=== PATIENT | female | born 1995 | race Caucasian/White ===

== ENCOUNTER 2019-01-29 11:58 | Observation (INO) | payer MEDICAID, OTHER ==
[~2019-01-29] VITALS: Ht 170.2 cm; Wt 74.9 kg
[2019-01-29] VITALS (8 sets, daily range): BP systolic 102–122; BP diastolic 58–70
--- OUTSIDE RECORDS SUMMARY | 2019-01-29 12:02 | XMS REPORT | Continuity of Care Document ---
Author Organization Unknown Address Unknown Allergies Active Description Code Type Severity Reaction Onset Reported/Identified Relationship to Patient Clinical Status Yes Omnicef Drug N/A N/A Yes penicillins Drug N/A N/A Medications There is no data. Problems Date Dx Coded Attending Type Code Diagnosis Diagnosed By 01/03/2015 Shakeel Adam Final 521.00 Dental Caries, Unspecified 01/03/2015 Shakeel Adam Final 787.01 Nausea with Vomiting Procedures There is no data. Results There is no data. Encounters ACCT No. Visit Date/Time Discharge Status Pt. Type Provider Facility Loc./Unit Complaint [id number] 01/03/2015 20:58:00 01/03/2015 23:50:00 DIS Emergency Shakeel Adam [facility] ER Nausea [facility] 01/03/2015 20:58:43 ACT Document Registration
--- NOTE | 2019-01-29 12:22 | ED Psychosocial ---
General Chief Complaint: Substance Abuse Source: family, EMS Exam Limitations: clinical condition, intoxication History of Present Illness Date Seen by Provider: Jan 29, 2019 Time Seen by Provider: 12:10 Initial Comments 23-year-old female brought in by EMS. EMS was called by patient's family due to her acting abnormal. Family reports that she got home around 8:30 this morning. She was acting altered and then had a syncope event. When EMS arrived patient was unresponsive. She became unresponsive shortly after they loaded her into the ambulance. They do report a very brief seizure-like activity. Patient reports that she used meth last night. She denies any other drug use. Patient does not provide a lot of further information. Allergies and Home Medications Allergies Uncoded Allergies: PENICILLIN (Allergy, Unknown, 01/29/19) SHELL FISH (Allergy, Unknown, 01/29/19) Patient Home Medication List Home Medication List Reviewed: Yes Review of Systems Constitutional: see HPI Respiratory: see HPI Musculoskeletal: no symptoms reported Skin: no symptoms reported Psychiatric/Neurological: Other (History of PTSD per her, possible history of seizures per her) Past Luacmtt-Mjbtrp-Bxrflc Hx Past Med/Social Hx: Reviewed Nursing Past Med/Soc Hx Physical Exam Vital Signs - First Documented 01/29/19 12:00 Temp 98.3 Pulse 117 Resp 18 B/P (MAP) 131/68 (89) Pulse Ox 98 O2 Delivery Room Air Capillary Refill : Height, Weight, BMI Height: '" Weight: lbs. oz. kg; BMI Method: General Appearance: other (Obviously intoxicated/altered due to substance abuse) HEENT: PERRL/EOMI Neck: full range of motion, supple Respiratory: chest non-tender, lungs clear Cardiovascular: normal peripheral pulses, regular rate, rhythm Gastrointestinal: non tender, soft Neurologic/Psychiatric: privacy compliance manager II-XII nml as tested, no motor/sensory deficits, other (Patient has episodes of shaking with decreased responsivebut comes out of it with stimulation) Appearance/Memory: other (Disheveled) Behavior/Eye Contact: increased rate of speech Thoughts/Hallucinations: No normal thought pattern Progress/Results/Core Measures Results/Orders Lab Results Laboratory Tests Test 01/29/19 12:10 01/29/19 12:38 01/29/19 13:37 Range/Units White Blood Count 15.5 H 4.3-11.0 10^3/uL Red Blood Count 4.05 L 4.35-5.85 10^6/uL Hemoglobin 9.8 L 11.5-16.0 G/DL Hematocrit 31 L 35-52 % Mean Corpuscular Volume 75 L 80-99 FL Mean Corpuscular Hemoglobin 24 L 25-34 PG Mean Corpuscular Hemoglobin Concent 32 32-36 G/DL Red Cell Distribution Width 18.6 H 10.0-14.5 % Platelet Count 391 130-400 10^3/uL Mean Platelet Volume 9.6 7.4-10.4 FL Neutrophils (%) (Auto) 76 H 42-75 % Lymphocytes (%) (Auto) 14 12-44 % Monocytes (%) (Auto) 9 0-12 % Eosinophils (%) (Auto) 0 0-10 % Basophils (%) (Auto) 0 0-10 % Neutrophils # (Auto) 11.7 H 1.8-7.8 X 10^3 Lymphocytes # (Auto) 2.2 1.0-4.0 X 10^3 Monocytes # (Auto) 1.4 H 0.0-1.0 X 10^3 Eosinophils # (Auto) 0.0 0.0-0.3 10^3/uL Basophils # (Auto) 0.0 0.0-0.1 10^3/uL Neutrophils % (Manual) 81 % Lymphocytes % (Manual) 12 % Monocytes % (Manual) 5 % Eosinophils % (Manual) 0 % Basophils % (Manual) 0 % Band Neutrophils 2 % Sodium Level 141 135-145 MMOL/L Potassium Level 3.4 L 3.6-5.0 MMOL/L Chloride Level 104 98-107 MMOL/L Carbon Dioxide Level 21 21-32 MMOL/L Anion Gap 16 H 5-14 MMOL/L Blood Urea Nitrogen 12 7-18 MG/DL Creatinine 0.60 0.60-1.30 MG/DL Estimat Glomerular Filtration Rate > 60 BUN/Creatinine Ratio 20 Glucose Level 97 70-105 MG/DL Calcium Level 8.1 L 8.5-10.1 MG/DL Corrected Calcium 8.3 L 8.5-10.1 MG/DL Total Bilirubin 0.5 0.1-1.0 MG/DL Aspartate Amino Transf (AST/SGOT) 53 H 5-34 U/L Alanine Aminotransferase (ALT/SGPT) 48 0-55 U/L Alkaline Phosphatase 64 40-136 U/L Total Protein 6.7 6.4-8.2 GM/DL Albumin 3.7 3.2-4.5 GM/DL Serum Alcohol < 10 <10 MG/DL Serum Test, Qualitative POSITIVE NEGATIVE Urine Color YELLOW Urine Clarity CLEAR Urine pH 5.5 5-9 Urine Specific [place] >=1.030 1.016-1.022 Urine Protein 1+ H NEGATIVE Urine Glucose (UA) NEGATIVE NEGATIVE Urine Ketones 1+ H NEGATIVE Urine Nitrite NEGATIVE NEGATIVE Urine Bilirubin NEGATIVE NEGATIVE Urine Urobilinogen 0.2 NORMAL MG/DL Urine Leukocyte Esterase NEGATIVE NEGATIVE Urine RBC (Auto) NEGATIVE NEGATIVE Urine RBC NONE /HPF Urine WBC RARE /HPF Urine Squamous Epithelial Cells RARE /HPF Urine Crystals PRESENT H /LPF Urine Amorphous Sediment MOD LENA URATES H /LPF Urine Bacteria NEGATIVE /HPF Urine Casts NONE /LPF Urine Mucus MODERATE H /LPF Urine Culture Indicated NO Urine Opiates Screen NEGATIVE NEGATIVE Urine Oxycodone Screen NEGATIVE NEGATIVE Urine Methadone Screen NEGATIVE NEGATIVE Urine Propoxyphene Screen NEGATIVE NEGATIVE Urine Barbiturates Screen NEGATIVE NEGATIVE Ur Tricyclic Antidepressants Screen NEGATIVE NEGATIVE Urine Phencyclidine Screen NEGATIVE NEGATIVE Urine Amphetamines Screen POSITIVE H NEGATIVE Urine Methamphetamines Screen POSITIVE H NEGATIVE Urine Benzodiazepines Screen POSITIVE H NEGATIVE Urine Cocaine Screen NEGATIVE NEGATIVE Urine Cannabinoids Screen POSITIVE H NEGATIVE My Orders Orders - POLLOCK,ALIDA L DO Alcohol (01/29/19 12:04) Cbc With Automated Diff (01/29/19 12:04) Comprehensive Metabolic Panel (01/29/19 12:04) Drug Screen Stat (Urine) (01/29/19 12:04) Hcg,Qualitative Serum (01/29/19 12:04) Ua Culture If Indicated (01/29/19 12:04) Ct Head Wo (01/29/19 12:04) Lorazepam Injection (Ativan Injection) (01/29/19 12:30) Manual Differential (01/29/19 12:10) Ns Iv 1000 Ml (Sodium Chloride 0.9%) (01/29/19 12:55) Medications Given in ED Current Medications Medications Dose Ordered Sig/Robles Route Start Time Stop Time Status Last Admin Dose Admin Lorazepam 2 mg ONCE ONCE IVP 01/29/19 12:30 01/29/19 12:31 DC 01/29/19 12:30 2 MG Vital Signs/I&O 6/29/19 12:00 Temp 98.3 Pulse 117 Resp 18 B/P (MAP) 131/68 (89) Pulse Ox 98 O2 Delivery Room Air Departure Communication (Admissions) Time/Spoke to Admitting Phy: 14:[address] Cortez. She will be transferred to [place] [facility] for observation due to her syncope and seizure like activity. Impression Primary Impression: Drug abuse Additional Impressions: Unresponsive episode Observed seizure-like activity Disposition: 02 XFER SHT-TRM HOSP Condition: Stable Admissions Decision to Admit Reason: Admit from ER (Trauma) Decision to Admit/Date: Jan 29, 2019 Time/Decision to Admit Time: 14:27 Transfer Transfer Facility: [facility] Method of Transfer: EMS Departure-Patient Inst. Patient Instructions: ALCOHOL AND SUBSTANCE ABUSE ALIDA POLLOCK DO Jan 29, 2019 12:22
[2019-01-29 12:23] LABS: HEMATOCRIT 31 % (35-52); HEMOGLOBIN 9.8 G/DL (11.5-16.0); LYMPHOCYTES % (AUTO) 14 % (12-44); MEAN CORPUSCULAR HEMOGLOBIN 24 PG (25-34); MEAN CORPUSCULAR HGB CONC 32 G/DL (32-36); MEAN CORPUSCULAR VOLUME 75 FL (80-99); MEAN PLATELET VOLUME 9.6 FL (7.4-10.4); NEUTROPHILS % (AUTO) 76 % (42-75); PLATELET COUNT 391 10^3/uL (130-400); RED CELL DISTRIBUTION WIDTH 18.6 % (10.0-14.5); WHITE BLOOD COUNT 15.5 10^3/uL (4.3-11.0)
[2019-01-29 12:24] LABS: BASOPHILS % (AUTO) 0 % (0-10); EOSINOPHILS % (AUTO) 0 % (0-10); LYMPHOCYTES # (AUTO) 2.2 X 10^3 (1.0-4.0); MONOCYTES # (AUTO) 1.4 X 10^3 (0.0-1.0); MONOCYTES % (AUTO) 9 % (0-12); NEUTROPHILS # (AUTO) 11.7 X 10^3 (1.8-7.8)
[2019-01-29] MEDS ORDERED: LORazepam INJ 2 MG/ML (ATIVAN) VIAL IVP ONE (12:30)
[2019-01-29 12:42] LABS: BAND NEUTROPHILS 2 %; BASOPHILS % (MANUAL) 0 %; EOSINOPHILS % (MANUAL) 0 %; LYMPHOCYTES % (MANUAL) 12 %; MONOCYTES % (MANUAL) 5 %; NEUTROPHILS % (MANUAL) 81 %
[2019-01-29 12:44] LABS: ALANINE AMINOTRANSFERASE 48 U/L (0-55); ALBUMIN 3.7 GM/DL (3.2-4.5); ALKALINE PHOSPHATASE 64 U/L (40-136); BILIRUBIN,TOTAL 0.5 MG/DL (0.1-1.0); BUN/CREATININE RATIO 20; CALCIUM 8.1 MG/DL (8.5-10.1); CARBON DIOXIDE 21 MMOL/L (21-32); CHLORIDE 104 MMOL/L (98-107); GFR ESTIMATED > 60; GLUCOSE 97 MG/DL (70-105); POTASSIUM 3.4 MMOL/L (3.6-5.0); SODIUM 141 MMOL/L (135-145); TOTAL PROTEIN 6.7 GM/DL (6.4-8.2)
--- NOTE | 2019-01-29 12:45 | Diagnostic Imaging Report ---
PROCEDURE: CT head without contrast. TECHNIQUE: Multiple contiguous axial images were obtained through the brain without the use of intravenous contrast. Auto Exposure Controls were utilized during the CT exam to meet ALARA standards for radiation dose reduction. INDICATION: Confusion, mental status changes COMPARISON: None. FINDINGS: Ventricles normal in size, shape and position. There is no midline shift or mass effect. There is no hemorrhage or evidence of acute ischemia. No extra-axial fluid collection is identified. The bony calvarium and mastoids are clear. There are air-fluid levels in the maxillary sinuses. IMPRESSION: 1. No acute intracranial abnormalities. 2. Maxillary sinus disease likely acute. Dictated by: Dictated on workstation # [id number]
[2019-01-29] MEDS ORDERED: NS IV 1000 ML 1,000 ML IV SCH ×2 (12:55→14:37)
[2019-01-29 13:53] LABS: BACTERIA,URINE NEGATIVE /HPF; BILIRUBIN,URINE NEGATIVE (NEGATIVE); CLARITY,URINE CLEAR; COLOR,URINE YELLOW; GLUCOSE, URINE (UA) NEGATIVE (NEGATIVE); KETONES,URINE 1+ (NEGATIVE); LEUKOCYTE ESTERASE ,URINE NEGATIVE (NEGATIVE); NITRITE,URINE NEGATIVE (NEGATIVE); PH,URINE 5.5 (5-9); PROTEIN,URINE 1+ (NEGATIVE); SQUAMOUS EPITHELIAL CELL,UR RARE /HPF; UROBILINOGEN,URINE 0.2 MG/DL (NORMAL); WBC,URINE RARE /HPF
[2019-01-29 13:54] LABS: AMORPHOUS SEDIMENT,UR MOD AMOR URATES /LPF
[2019-01-29 13:56] LABS: CANNABINOID SCREEN, URINE POSITIVE (NEGATIVE)
[2019-01-29 13:57] LABS: AMPHETAMINE SCREEN, URINE POSITIVE (NEGATIVE); BARBITURATE SCREEN URINE NEGATIVE (NEGATIVE); BENZODIAZEPINES SCREEN URINE POSITIVE (NEGATIVE); COCAINE SCREEN URINE NEGATIVE (NEGATIVE); METHADONE STAT NEGATIVE (NEGATIVE); METHAMPHETAMINE SCREEN URINE S POSITIVE (NEGATIVE); OPIATE SCREEN URINE NEGATIVE (NEGATIVE); OXYCODONE STAT NEGATIVE (NEGATIVE); PROPOXYPHENE STAT NEGATIVE (NEGATIVE); TRICYCLIC ANTIDEPRESSANTS SCRE NEGATIVE (NEGATIVE)
--- OUTSIDE RECORDS SUMMARY | 2019-01-29 14:44 | XMS REPORT | Continuity of Care Document ---
[...] Status Pt. Type Provider Facility Loc./Unit Complaint [id number] 01/03/2015 20:58:00 01/03/2015 23:50:00 DIS Emergency Shakeel Adam [facility] ER Nausea [id number] 01/03/2015 20:58:43 ACT Document Registration
[2019-01-29] MEDS: NS IV 1000 ML 1,000 ML IV SCH (16:51)
[2019-01-30] VITALS (12 sets, daily range): BP systolic 103–124; BP diastolic 62–75
[2019-01-30] MEDS: NS IV 1000 ML 1,000 ML IV SCH ×4 (02:00→21:31)
[2019-01-30 03:35] LABS: BASOPHILS % (AUTO) 0 % (0-10); EOSINOPHILS # (AUTO) 0.1 10^3/uL (0.0-0.3); EOSINOPHILS % (AUTO) 1 % (0-10); HEMATOCRIT 29 % (35-52); HEMOGLOBIN 9.3 G/DL (11.5-16.0); LYMPHOCYTES % (AUTO) 28 % (12-44); MEAN CORPUSCULAR HEMOGLOBIN 24 PG (25-34); MEAN CORPUSCULAR HGB CONC 32 G/DL (32-36); MEAN CORPUSCULAR VOLUME 75 FL (80-99); MEAN PLATELET VOLUME 9.7 FL (7.4-10.4); MONOCYTES # (AUTO) 1.1 X 10^3 (0.0-1.0); MONOCYTES % (AUTO) 10 % (0-12); NEUTROPHILS # (AUTO) 6.5 X 10^3 (1.8-7.8); NEUTROPHILS % (AUTO) 61 % (42-75); PLATELET COUNT 352 10^3/uL (130-400); WHITE BLOOD COUNT 10.7 10^3/uL (4.3-11.0)
[2019-01-30 03:55] LABS: ALANINE AMINOTRANSFERASE 54 U/L (0-55); ALBUMIN 3.3 GM/DL (3.2-4.5); ALKALINE PHOSPHATASE 57 U/L (40-136); BILIRUBIN,TOTAL 0.6 MG/DL (0.1-1.0); BUN/CREATININE RATIO 9; CALCIUM 7.6 MG/DL (8.5-10.1); CARBON DIOXIDE 19 MMOL/L (21-32); CHLORIDE 111 MMOL/L (98-107); CREATININE SERUM 0.53 MG/DL (0.60-1.30); GFR ESTIMATED > 60; GLUCOSE 76 MG/DL (70-105); POTASSIUM 2.8 MMOL/L (3.6-5.0); SODIUM 139 MMOL/L (135-145); TOTAL PROTEIN 5.7 GM/DL (6.4-8.2)
--- NOTE | 2019-01-30 07:05 | NUR ---
INFORMED DR. ZARATE OF PATIENT'S POTASSIUM OF 2.8. RECEIVED ORDERS FOR 10 MEQ POTASSIUM PO NOW AND REPEAT IN TWO HOURS.
[2019-01-30] MEDS ORDERED: KCL 10 MEQ TAB (MICRO K) PO ONE ×2 (07:15→09:15)
--- NOTE | 2019-01-30 11:42 | Short Stay Summary-Hospitalist ---
History of Present Illness HPI/Chief Complaint 23-year-old female brought in by EMS. EMS was called by patient's family due to her acting abnormal. Family reports that she got home around 8:30 this morning. She was acting altered and then had a syncope event. When EMS arrived patient was unresponsive. She became unresponsive shortly after they loaded her into the ambulance. They do report a very brief seizure-like activity. Patient reports that she used meth last night. She denies any other drug use. Patient does not provide a lot of further information. upon my arrival this morning the patient was alert and oriented. She did not recall much of anything about yesterday's events. She stated that she had been abstinent from meth for 6 months but admitted that she had messed up and had started using the night before. She has had problems of agitation with the medication in the past but does not note any past history for seizure disorder and denied any trauma issues. She had no evidence for head or neck trauma reported no problems with headaches or neck pain and had a negative CT scan in the emergency room. We discussed the fact that her test is positive and she is unsure as to when her last menstrual period was. She states that she is interested in drug treatment now. As it is Thursday we are in the process of getting her set up with mental health services to discuss likely outpatient or whether or not she would be a candidate for any inpatient programs for drug rehabilitation. She states that she is motivated to following through with this. She will be discharged later today after appropriate follow-up can be made with mental health services. Discussed that she would need to follow-up with a electroplating sales representative and since she is new to the area could look into community health as she is uninsured. Date Seen 01/30/19 Time Seen by a Provider: 07:30 Attending Physician Masoud Zarate MD PCP No,Local Physician Referring Physician Date of Admission Jan 29, 2019 at 14:39 Home Medications & Allergies Home Medications Reviewed patient Home Medication Reconciliation performed by pharmacy medication reconciliations thermoplastic technician and/or nursing. Patients Allergies have been reviewed. Allergies Allergies Uncoded Allergies PENICILLIN ( Allergy, Unknown, 01/29/19) SHELL FISH ( Allergy, Unknown, 01/29/19) Past Mravyzt-Egpthp-Yuexpq Hx Past Med/Social Hx: Reviewed Nursing Past Med/Soc Hx, Reviewed and Corrections made Patient Social History Alcohol Use: Rarely Uses Recreational Drug Use: Yes Drug of Choice: Methamphetamines, Marijuana Smoking Status: Current Everyday Smoker Type Used: Cigarettes 2nd Hand Smoke Exposure: No Recent Foreign Travel: No Contact w/other who traveled: No Recent Hopitalizations: No Recent Infectious Disease Expo: No Seasonal Allergies Seasonal Allergies: No Past Medical History : Yes Psychosocial: PTSD History of Blood Disorders: No Review of Systems Constitutional: no symptoms reported Respiratory: no symptoms reported Cardiovascular: no symptoms reported Physical Exam Physical Exam Vital Signs Vital Signs - First Documented 01/29/19 12:00 Temp 98.3 Pulse 117 Resp 18 B/P (MAP) 131/68 (89) Pulse Ox 98 O2 Delivery Room Air Capillary Refill : Less Than 3 Seconds Height, Weight, BMI Height: 5'7.00" Weight: 165lbs. 3.0oz. 74.398501yg; 25.4 BMI Method:Actual General Appearance: No Apparent Distress, WD/WN HEENT: PERRL/EOMI Neck: Full Range of Motion, Normal Inspection, Non Tender Respiratory: Chest Non Tender, Lungs Clear, Normal Breath Sounds, No Accessory Muscle Use, No Respiratory Distress Cardiovascular: Regular Rate, Rhythm, No Edema, No Gallop, No JVD, No Murmur, Normal Peripheral Pulses Gastrointestinal: Normal Bowel Sounds, No Organomegaly, No Pulsatile Mass, Non Tender, Soft Extremity: Normal Capillary Refill, Normal Inspection, Normal Range of Motion, Non Tender, No Calf Tenderness, No Pedal Edema Neurologic/Psychiatric: Alert, Oriented x3, No Motor/Sensory Deficits, Normal Mood/Affect Skin: Normal Color, Warm/Dry Results Results/Procedures Labs Laboratory Tests 01/29/19 12:10 01/30/19 03:15 Patient resulted labs reviewed. Short Stay Diagnosis Discharge Diagnosis-Short Stay Admission Diagnosis A/P 1. 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 Patient advised that she should not be driving for 6 months however. 2. Positive test. Final Discharge Diagnosis as per admission diagnosis Conclusion Plan see history of present illness Clinical Quality Measures DVT/VTE Risk/Contraindication: Risk Factor Score Per Nursin RFS Level Per Nursing on Admit: 2=Moderate MASOUD ZARATE MD Jan 30, 2019 11:41
--- NOTE | 2019-01-30 19:55 | NUR ---
PT REQUESTING TO CALL HER MOM AT THIS TIME. THIS RN SHOWED PATIENT HOW TO USE PHONE. MOMENTS LATER SCREAMING HEARD FROM PATIENT'S ROOM. PT ON THE PHONE SCREAMING "I DID NOT TOUCH HER, IT'S NOT BATTERY IF YOU DON'T TOUCH THEM." THIS RN ASKED PT TO PLEASE KEEP HER VOICE DOWN. THIS RN CLOSED PT DOOR AND SAT OUTSIDE OF ROOM TO INSURE PT WOULD BE SAFE. PT BEGAN TO SCREAM AGAIN, "I'VE BEEN CLEAN 150 DAYS NOW MOM, I CAN'T DO METH ANYMORE BECAUSE I'M GOING TO HAVE A BABY." CONVERSATION ENDED AND PT APPEARS MORE RELAXED. BED ALARM IS ON. BED IS IN LOWEST POSITION AND TELESITTER IN PLACE.
[2019-01-31 01:06] VITALS: BP 124/66
[2019-01-31] MEDS: NS IV 1000 ML 1,000 ML IV SCH ×3 (02:35→14:09)
[2019-01-31 04:23] VITALS: BP 126/58
[2019-01-31 08:00] VITALS: BP 122/67
[2019-01-31] MEDS ORDERED: MV-M1TAB66 PO (08:03)
--- NOTE | 2019-01-31 10:28 | NUR ---
CM/SS spoke with the [facility], they did not physically assess the patient as she was not suicidal or homicidal. Patient was stating willing to go to inpatient treatment if she was able to and information was sent to [facility] on 01/30. [facility] declined placement. Patient reports she has been in inpatient psych placements previously with [facility]. With last inpatient psych placement 6-7months ago. Patient has been staying with her wnsqli-qt-iob (Ike) in [place] until recently when went to see her mom in [facility]. Patient had A/D and MH counseling services set up until November 2018. Patient is now wanting to just go back to stay with her inqxpe-hm-kwg, where she will have to re-establish her counseling as a stipulation for her to stay there. Spoke with Adriana and she stated that she would transport the patient this day and that she would be allowed to stay there if she was seeking counseling, she hopes that knowing she is now will be added motivation for her to straighten out her life. Patient stated that she was beginning to "get down on herself" and that is why she was agreeing to go inpatient. She stated that she was not having any suicidal ideations at this time and has no plan.
[2019-01-31 12:00] VITALS: BP 110/87
--- NOTE | 2019-01-31 12:13 | Discharge Inst-Simple/Standard ---
Discharge Inst-Standard Patient Instructions/Follow Up Plan of Care/Instructions/FU: Please continue to take your vitamin. Please follow up with your PCP at to follow up on . Please quit using drugs. Please do not drivve for 6 months. Activity as Tolerated: Yes Discharge Diet: No Restrictions Return to The Hospital For: Chest pain, Shortness of breath, seizures, vaginal bleeding, abdominal pain, if you feel you are getting worse. LISA GRANT MD Jan 31, 2019 12:13
--- NOTE | 2019-01-31 12:15 | Discharge Summary-Hospitalist ---
Diagnosis/Chief Complaint Date of Admission Jan 29, 2019 at 14:39 Date of Discharge Discharge Date: Jan 31, 2019 Admission Diagnosis A/P 1. 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 Patient advised that she should not be driving for 6 months however. 2. Positive test. Discharge Summary Discharge Physical Exam Allergies: Uncoded Allergies: PENICILLIN (Allergy, Unknown, 01/29/19) SHELL FISH (Allergy, Unknown, 01/29/19) Vitals & I&Os Vital Signs Date Time Temp Pulse Resp B/P (MAP) Pulse Ox O2 Delivery O2 Flow Rate FiO2 01/31/19 14:20 01/31/19 12:00 98.1 86 14 96 Room Air General Appearance: No Apparent Distress, WD/WN Cardiovascular: Regular Rate, Rhythm, No Murmur Neurologic/Psychiatric: Alert, Oriented x3 Hospital Course Pt was admitted for acute psychosis following methamphetamine use. She was found to be newly as well. She underwent transvaginal ultrasound which revealed no sonographic signs of . She was advised to establish care with OB and follow up for care. youth services specialist was consulted and helped to facilitate outpatient follow up for drug treatment as well. She was discharged home in stable condition with her sister in law. Labs (last 24 hrs) Patient resulted labs reviewed. Discussion & Recommendations Discharge Planning: >30 minutes discharge planning Discharge Home Medications: Active Scripts Active One Tablet (Mv-Mn/Iron/FA/Herbal/Digestive) 1 Each Tablet 1 Each PO DAILY Instructions to patient/family Please see electronic discharge instructions given to patient. Clinical Quality Measures DVT/VTE Risk/Contraindication: Risk Factor Score Per Nursin RFS Level Per Nursing on Admit: 2=Moderate LISA GRANT MD Jan 31, 2019 12:15
--- NOTE | 2019-01-31 14:01 | Diagnostic Imaging Report ---
PROCEDURE: US OB SINGLE FETUS <14 WKS. TECHNIQUE: Multiple real-time grayscale images were obtained over the gravid uterus in various projections. INDICATION: Seizure with positive urine test Findings: Uterus measures 8 x 5.8 x 3 cm. Endometrial thickness is 8 mm. Neither ovary was visualized. There are no adnexal masses. There is no free pelvic fluid. IMPRESSION: Unremarkable limited transabdominal pelvic ultrasound. Dictated by: Dictated on workstation # [id number]
--- NOTE | 2019-01-31 14:20 | NUR ---
ABDOULAYE BASS demonstrates understanding of discharge instructions and accurately returns instructions upon questioning. Copy of Post-Discharge Instructions and Medication Discharge Instructions given to PT. ABDOULAYE BASS is able to manage continuing needs after discharge. Patients belongings returned to PT. Skin dry and intact; no breakdown noted. Patient discharged from [facility]- on 01/31/19 at 1420. ABDOULAYE BASS left floor via AMBULATION, accompanied by TRISTON.
== END 2019-01-31 11:31 | disposition home or self-care (01) ==
LOC: ER FS 11:59 → ICU 14:39 → UNDOADMOB 14:39 → ICU 16:20 → UNDODISOB 01-31 14:20
PROVIDERS: ADMIT Internal Medicine; ATTEND Family Medicine
DX: F15.188 Other stimulant abuse with other stimulant-induced disorder (principal); R55 Syncope and collapse; F17.210 Nicotine dependence, cigarettes, uncomplicated; Z33.1 Pregnant state, incidental
CPT/HCPCS: 36415; 51701; 70450; 76801; 80053; 80306; 80320; 81000; 84703; 85007; 85025; 85027; 96361; 96374

== ENCOUNTER 2019-10-09 13:57 | Emergency (ER) | payer MEDICAID ==
[~2019-10-09] VITALS: Ht 168 cm; Wt 77.0 kg
[~2019-10-09 13:57] MED LIST: MV-M1TAB66 PO
--- NOTE | 2019-10-09 14:15 | ED GU-Female ---
General Chief Complaint: - Urinary Stated Complaint: CONTRACTIONS; VOMITINGS Source: patient History of Present Illness Date Seen by Provider: Oct 09, 2019 Time Seen by Provider: 14:00 Initial Comments This patient presents to the emergency department is a at 38 weeks presents to the MRSA or foraminal contractions" are regular for lasting 3-5 minutes for the past hour and half. Patient is provided SLEEPING CAR SERVICE ATTENDANT care at [facility] SLEEPING CAR SERVICE ATTENDANT. Patient states she was seen last week on regular scheduled appointment and had already lost her mucous plug. We'll do a medical evaluation treatment is needed. Severity/Quality: moderate Radiation: none Activities at Onset: none Prior Genitourinary Problems: none Allergies and Home Medications Allergies Uncoded Allergies: PENICILLIN (Allergy, Unknown, 01/29/19) SHELL FISH (Allergy, Unknown, 01/29/19) Home Medications Mv-Mn/Iron/FA/Herbal/Digestive 1 Each Tablet, 1 EACH PO DAILY Prescribed by: LISA GRANT on 01/31/19 0803 Patient Home Medication List Home Medication List Reviewed: Yes Review of Systems Review of Systems Constitutional: no symptoms reported, see HPI EENTM: no symptoms reported; No blurred vision, No double vision, No throat pain Respiratory: no symptoms reported; No short of breath, No stridor Cardiovascular: no symptoms reported Gastrointestinal: no symptoms reported : Yes Expected Date of Delivery: Oct 23, 2019 LMP: Jan 22, 2019 Musculoskeletal: no symptoms reported Skin: no symptoms reported All Other Systemes Reviewed Negative Unless Noted: Yes Past Hhyojao-Wdcboq-Txhlxi Hx Patient Social History Drug of Choice: Methamphetamines, Marijuana Type Used: Cigarettes 2nd Hand Smoke Exposure: No Recent Foreign Travel: No Contact w/Someone Who Travel: No Recent Hopitalizations: No Seasonal Allergies Seasonal Allergies: No Past Medical History Surgeries: No Respiratory: No Cardiac: No Neurological: No Genitourinary: No Gastrointestinal: No Musculoskeletal: No Endocrine: No HEENT: No Cancer: No Psychosocial: Yes (Substance Abuse (meth)) PTSD Integumentary: No Blood Disorders: No Physical Exam Vital Signs Capillary Refill : Height, Weight, BMI Height: 5'7.00" Weight: 165lbs. 3.0oz. 74.946989sn; 25.4 BMI Method:Actual General Appearance: WD/WN, no apparent distress HEENT: PERRL/EOMI, normal ENT inspection, TMs normal, pharynx normal Neck: non-tender, full range of motion, supple, normal inspection Cardiovascular: normal peripheral pulses, regular rate, rhythm, no edema, no gallop, no JVD, no murmur Respiratory: chest non-tender, lungs clear, normal breath sounds, no respiratory distress, no accessory muscle use, respiratory distress Gastrointestinal: normal bowel sounds, non tender, soft, no organomegaly, no pulsatile mass, abnormal bowel sounds Genital/Rectal: normal genital exam, other (cervix appears to be thick elongated dilation is 1-2 cm. No rupture membranes) Progress/Results/Core Measures Suspected Sepsis SIRS Temperature: Pulse: Respiratory Rate: Blood Pressure / Mean: Results/Orders Vital Signs/I&O Capillary Refill : Departure Impression Primary Impression: Uterine contractions Additional Impression: Term Disposition: 02 XFER SHT-TRM HOSP Condition: Unchanged Transfer Transfer Reason: Exceeds level of care Time Spoke to Accepting Phy: 14:12 Transfer Progress Notes This patient be transferred to [facility] SLEEPING CAR SERVICE ATTENDANT Department for Dr. Jiang. Transfer Time: 14:14 Transfer Facility: [facility] Method of Transfer: EMS Departure-Patient Inst. Referrals: NO,LOCAL PHYSICIAN (PCP/Family) Primary Care Physician JANEL FULLER MD Oct 09, 2019 14:15
[2019-10-09] MEDS ORDERED: NS IV 1000 ML 1,000 ML IV SCH (14:30)
[2019-10-09 14:45] VITALS: BP 130/104
== END 2019-10-09 14:45 | disposition short-term general hospital (02) ==
LOC: EDUNIT# 13:57 → ER FS 13:59
DX: O62.8 Other abnormalities of forces of labor (principal); Z3A.38 38 weeks gestation of pregnancy; Z88.0 Allergy status to penicillin